=== PATIENT | male | born 1950 | race Caucasian/White ===

== ENCOUNTER → 2018-03-21 | Outpatient (CLI) | payer MEDICARE ==
--- NOTE | 2018-03-21 12:33 | P.SLEEP ---
History of Present Illness H&P Date: 03/21/18 Chief Complaint: Obstructive sleep apnea This is a 68-year-old male patient is coming in for further advice regarding his obstructive sleep apnea treatment. The patient is known to have obstructive sleep apnea. Has been diagnosed having GENE back in 2006. At that time, the patient had moderate to severe disease with AHI of 25 and the patient was given CPAP therapy at a pressure of 8 cm of water. Back then, the patient used to weigh 224 pounds and he was advised to lose weight and improve his sleep hygiene measures. Over the years, the patient had been very compliant to CPAP treatment. Initially he had some difficulty utilizing CPAP unit and ultimately he found a mask interface which is a combination of nose pillow and an oral appliance which is her tongue retaining device. This seems to be the best mask interventions that he has had and since then has been able to utilize his CPAP unit without any major difficulties. He is currently retired. 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 The certified is another whether the patient is obstructive sleep apnea. I checked his CPAP unit. The patient is an old generation Respironics units which is at least 12 years old. He is not utilizing any form of humidity. On his compliance data that I was able to pull, the patient has been averaging around 3 hours and 42 minutes of CPAP use for night and his CPAP use for more than 4 hours is almost 16 out of the past 30 days. Based on this data, the patient's treatment is suboptimal. However, he tells that he is feeling great and he is wide awake and alert during the day to the point where he doesn't fall sleep. He seems to be a short sleeper. He goes to bed around 9 PM and wakes up to 2:45 AM in the morning on work days. His sleep schedule will vary she is now working. He has no major difficulties initiating sleep with a combination of melatonin 3 mg as needed and trazodone 50 mg as needed. He has gained around 25 pounds over this past 12 years and current weight is up to 252. No snoring while on his CPAP unit. No angina. No nighttime arousals for choking or gasping for air. No nocturia. No grinding of the teeth. No sleepwalking. No anxiety. No panic. No restlessness in lower extremity. No sleepwalking or sleep talking. No difficulty with concentration or memory. Review of Systems Constitutional: Denies chills, Denies fever Eyes: denies as per HPI, denies blurred vision, denies bulging eye, denies decreased vision, denies diplopia, denies discharge, denies dry eye, denies irritation, denies itching, denies pain, denies photophobia, denies loss of peripheral vision, denies loss of vision, denies tunnel vision/blind spots Ears: deny: decreased hearing, ear discharge, earache, tinnitus Ears, nose, mouth and throat: Reports as per HPI Cardiovascular: Denies chest pain, Denies shortness of breath Respiratory: Denies cough Gastrointestinal: Reports as per HPI Genitourinary: Reports as per HPI Musculoskeletal: Reports as per HPI Musculoskeletal: absent: ankle pain, ankle stiffness, ankle swelling, as per HPI , elbow pain, elbow stiffness, elbow swelling, foot pain, foot stiffness, foot swelling, hand pain, hand stiffness, hand swelling, hip pain, hip stiffness, hip swelling, knee pain, knee stiffness, knee swelling, shoulder pain, shoulder stiffness, shoulder swelling, wrist pain, wrist stiffness, wrist swelling Integumentary: Denies pruritus, Denies rash Neurological: Denies numbness, Denies weakness Psychiatric: Denies anxiety, Denies depression Endocrine: Denies fatigue, Denies weight change Hematologic/Lymphatic: Reports as per HPI Allergic/Immunologic: Reports as per HPI Past Medical History Additional Past Medical History / Comment(s): Coronary artery disease with previous bypass surgery, obstructive sleep apnea, obesity, hypertension, hyperlipidemia Past Surgical History: Coronary Bypass/CABG, Orthopedic Surgery (Knee surgery) Past Anesthesia/Blood Transfusion Reactions: No Reported Reaction Past Psychological History: No Psychological Hx Reported Smoking Status: Never smoker Past Alcohol Use History: None Reported Past Drug Use History: None Reported Medications and Allergies Home Medications and Allergies Comment(s): Atorvastatin 20 mg by mouth daily, metoprolol 100 mg by mouth daily, losartan 100 mg by mouth daily, Norvasc 10 mg by mouth daily, melatonin 3 mg as needed, trazodone 50 mg as needed. Physical Exam The patient appeared well nourished and normally developed. Vital signs as documented. Head exam is unremarkable. No scleral icterus or corneal arcus noted. Neck is without jugular venous distension, thyromegaly, or carotid bruits. The patient has significant crowding of the posterior oropharynx. The patient is a Mallampati class IV. Carotid upstrokes are brisk bilaterally. Lungs are clear to auscultation and percussion. Cardiac exam reveals the PMI to be normally sized and situated. Rhythm is regular. First and second heart sounds normal. No murmurs, rubs or gallops. Abdominal exam reveals normal bowel sounds, no masses, no organomegaly and no aortic enlargement. Extremities are nonedematous and both femoral and pedal pulses are normal.Examination of the skin revealed no evidence of significant rashes, suspicious appearing nevi or other concerning lesions. Neurologically awake and alert and there is no focal neurological deficits. There is a scar which is a thoracotomy scar over the anterior chest Assessment and Plan Plan: 1 obstructive sleep apnea currently on CPAP pressure of 8 cm of water. The patient's baseline AHI was 25 based on a sleep study that was done back in 2006. Interval history is positive for 25 pounds weight gain. Compliance data seems to be suboptimal. Clinically alert and awake without any major hypersomnia. 2 hypersomnia recovered with CPAP therapy. This is improved despite suboptimal data on his compliancy follow-up. Possibly that the patient is a short sleeper. The patient has an [place] score of 5 3 schoolbus limousine driver 4 obesity with a BMI of 39.4 5 coronary artery disease with previous bypass surgery 6 hyperlipidemia 7 hypertension Plan We'll ask the patient to lose weight. We are asked the patient to extend his sleep hours on average of 6-7 hours if possible. I have a suspicion that the patient is a short sleeper and he may not require long number of hours of sleep. In any rate, based on the fact that the patient is a schoolbus limousine driver, I would like to see improved compliance data on a CPAP unit. I offered them a new CPAP unit and he was willing to upgrade his machine to a newer generation APAP unit which will be ordered and still be set at a minimum pressure of 5 and a maximum pressure 15 and the patient will see back in follow-up to discuss his compliancy and clinical response. It's important for this patient to average at least 4 hours of APAP use and his compliance data will be monitored very closely prior to this patient obtaining his DOT certification. Implement the sleep hygiene measures. Keep the same mask interface. We'll continue to follow. Sleep Note - Sleep Data Previous Sleep Study: Yes Previous Sleep Study Location: [facility] Device: CPAP (CPAP of 8) Using Heated Humidity: No - Sleep Note Sleep Note: Temperature: 97 9 Pulse Rate: 70 Respiratory Rate: 16 Blood Pressure: 159/69 SpO2: 97% Height: 252 pounds Weight: 5 feet 7 inches BMI: 39.4 Neck Circumference: 19 inches
== END | disposition home or self-care (01) ==
LOC: SLEEP 09:58
PROVIDERS: ATTEND Internal Medicine Critical Care Medicine
DX: G47.33 Obstructive sleep apnea (adult) (pediatric) (principal); E66.9 Obesity, unspecified; I25.10 Atherosclerotic heart disease of native coronary artery without angina pectoris; E78.5 Hyperlipidemia, unspecified; I10 Essential (primary) hypertension; Z68.39 Body mass index [BMI] 39.0-39.9, adult; Z99.89 Dependence on other enabling machines and devices; Z95.1 Presence of aortocoronary bypass graft
CPT/HCPCS: 99211

== ENCOUNTER → 2018-05-09 | Outpatient (CLI) | payer MEDICARE ==
--- NOTE | 2018-05-09 16:04 | PN ---
PROGRESS NOTE This is a 68-year-old male patient with known history of obstructive sleep apnea with an AHI of 25 who was been on CPAP therapy in the past. The patient came into my office for re-evaluation back in March of 2018. The patient was given an updated CPAP unit and the patient is coming in today for a compliancy check. He was given a ResMed AutoSet CPAP unit which was set at a minimum pressure of 5 and a maximum pressure of 15. 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 On today's evaluation, the patient is utilizing his CPAP compliantly. The patient is on an auto mode with minimum pressure of 5, maximum pressure of 15. Since his last evaluation he has lost around 5 pounds. Based on the compliance data, the patient has been using his CPAP every night. His CPAP use for more than 4 hours is above 90%. His average pressure utilized is 14.5, and his AHI while on treatment is down to 2.4, indicating that the patient is being successfully treated. He is loving his new CPAP machine. He is benefitting from the treatment. He reports improvement in his sleep quality in general. His [place] score is 1 and he does not take any naps during the day nor does he fall asleep while driving his car or doing any other daily activities. No other complaints for now. REVIEW OF SYSTEMS: Fourteen-point review of systems was done. Positive findings are mentioned above in the history of present illness. Snoring has completely subsided. No headaches. No altered mentation. No dizziness. No neck pain. No sinus infections. No sore throat. He is using his own mask that he purchased online. No reported grinding of the teeth. No choking or gasping sensation. No angina. No palpitations. No nausea, vomiting, diarrhea or abdominal pain. No dysuria, frequency or urgency. No difficulty with memory or concentration. No sleepwalking or sleeptalking. No swelling in the lower extremities. No blurred vision. No hearing difficulties for now. PHYSICAL EXAMINATION: His current vital signs are BP 124/72, pulse 56, respirations 16, temperature 97.8, saturation 97% on room air. Weight is 247. GENERAL APPEARANCE: Calm, comfortable. Head is atraumatic, normocephalic. NECK: Supple. No JVD. No goiter or neck masses. Mallampati class IV. LUNGS: Clear to auscultation. HEART: Heart sounds are regular rate and rhythm. Normal S1, S2. No S3, S4. No murmurs. ABDOMEN: Soft, nontender. No organomegaly. EXTREMITIES: No edema. No cyanosis or clubbing. NEUROLOGIC: He is awake and alert x3. There is no focal neurological deficit. PSYCHIATRIC: Negative for anxiety or depression. Skin is negative for any wounds or ulceration. There is a thoracotomy scar over the anterior chest area. IMPRESSION: 1. Obstructive sleep apnea, apnea/hypopnea index of 25, indicating moderate to severe disease based on a sleep study that was done 2006. Currently on APAP, minimum of 5, maximum of 15, and the patient is clinically benefitting from treatment and he has demonstrated adequate compliancy. 2. Hypersomnia, recovered. [place] score is down to 1. 3. cdl flatbed truck driver. 4. Obesity with a body mass index of 39.4, interval 5-pound weight loss. 5. Coronary artery disease with bypass surgery. 6. Hyperlipidemia. 7. Hypertension. PLAN: 1. Continue APAP therapy at the same pressure setting. 2. No need for any adjustments on today's evaluation. 3. Compliance data was checked, and the patient has been using his machine appropriately more than 6 hours per night and his apnea score is less than 5, indicating successful treatment. 4. The patient is seeking a DOT certification from [employer]. I do not see any issues with that, and I think the patient has been utilizing his CPAP regularly and has been treated successfully. He has no increased risk compared to the general population of falling asleep during driving or being involved in a motor vehicle accident due to sleep apnea. His disease is treated and he should be able to get his DOT certification without any reservations from our end. MMODL / IJN: [id number] /
== END | disposition home or self-care (01) ==
LOC: SLEEP 14:01
PROVIDERS: ATTEND Internal Medicine Critical Care Medicine
DX: G47.33 Obstructive sleep apnea (adult) (pediatric) (principal); E66.9 Obesity, unspecified; I25.10 Atherosclerotic heart disease of native coronary artery without angina pectoris; E78.5 Hyperlipidemia, unspecified; I10 Essential (primary) hypertension; Z68.39 Body mass index [BMI] 39.0-39.9, adult; Z95.1 Presence of aortocoronary bypass graft; Z99.89 Dependence on other enabling machines and devices

== ENCOUNTER → 2021-07-02 | Outpatient (CLI) | payer MEDICARE ==
--- NOTE | 2021-07-02 14:44 | CONS ---
CONSULTATION DATE OF SERVICE: 07/02/2021 71-year-old gentleman has been evaluated in Sleep Center for obstructive sleep apnea- hypopnea syndrome. Last time patient was in our Sleep Center in 2019, he was seen by Dr. Philip at that time. He was diagnosed with moderate obstructive sleep apnea-hypopnea syndrome, apnea- hypopnea index 25 on the basis of results of previous sleep study which possibly was done in another institution, and at that time apnea-hypopnea index was 25. SLEEP SCHEDULE: His sleep schedule about 5 hours and he gets up in the morning about 5:00 am. 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 DURING SLEEP: While using his machine, he maybe wakes up from sleep once. No nocturia. Positive history of snoring. [place] Sleepiness Scale today is 3 which is totally normal. The patient does not take any naps. FALLING ASLEEP: No problems with falling asleep at night although he has TV set in bedroom usually sleeps on the side position. No history of hypnagogic hallucinations sleep paralysis or cataplexy. He indicated that he probably still snores with CPAP. I checked CPAP unit. It is in automatic regimen. Range of the pressure 5-15 cm of water. Average 11.8 cm of water. Usage is 26/30 nights and 22/30 nights for more than 4 hours. Average usage 5.7 hours per night. Leak is 16 L/minute, which is acceptable. Apnea-hypopnea index is 3.8 which is in normal range. PAST MEDICAL HISTORY: Positive for coronary artery disease, hypertension, hyperlipidemia, neck problems. PAST SURGICAL HISTORY: Neck surgery, right knee surgery, coronary artery bypass graft in 2007. MEDICATIONS: Atorvastatin 20 mg once a day, metoprolol 100 mg once a day, losartan hydrochlorothiazide 100/25 mg once a day, amlodipine 10 mg once a day, aspirin 81 mg once a day, 150 mg twice a day. REVIEW OF SYSTEMS: Occasional awakenings from sleep. FAMILY HISTORY: Heart problems, hypertension. PHYSICAL EXAMINATION: GENERAL: gentleman without distress. BP 141/71, HR 54, RR 16, height 5 feet 7 and one half inches, weight 255, body mass index 39.3, temperature 98.1, oxygen saturation at room air 97%. OROPHARYNX: Extremely low position of soft palate, Mallampati 4. NECK is wide. Neck: Supple, no JVD. Thyroid is not palpable. LUNGS: Clear to percussion and to auscultation. Good air exchange. No wheezing or rhonchi. HEART: S1, S2 regular. No murmurs, gallops, or rubs. ABDOMEN: Obese. Soft and nontender. Bowel sounds are present. No organomegaly appreciated. EXTREMITIES: No clubbing or cyanosis. JUICE WEIGHER: Awake, alert, and oriented X3. Cranial nerves 2 to 7 intact. There is no fasciculation or atrophy. noted. No focal deficits observed. IMPRESSION: 1. Obstructive sleep apnea-hypopnea syndrome for many years. The patient continued to use his CPAP equipment with good compliance, normal respiration on CPAP. CPAP unit does not have correct air filter. 2. Obesity, body mass index 39.3. 3. Coronary artery disease, status post coronary artery bypass grafting. 4. Hypertension. 5. Hyperlipidemia. 6. Status post neck surgery. 7. Status post right knee surgery. PLAN: 1. Patient should immediately get correct air filter for his CPAP unit. The prescription was written. 2. Continue to use CPAP equipment every night for the whole night. 3. Losing weight. 4. Sleep hygiene with regular time in bed for at least 7-1/2 to 8 hours. 5. No driving if feeling any sleepiness. 6. Follow-up visit in 6 months or earlier if patient has any problems. Thank you very much for allowing me to participate in management of your patient. Sincerely, Prosper Cintron MD, PhD, FAASM Diplomat of [employer] [employer] Sleep Medicine Board of [place] [employer] Civil Clerk of [facility] [place] MMODL / IJN: [id number] /
== END ==
LOC: SLEEP 11:20
PROVIDERS: ATTEND Internal Medicine
DX: G47.33 Obstructive sleep apnea (adult) (pediatric) (principal); I25.10 Atherosclerotic heart disease of native coronary artery without angina pectoris; E66.9 Obesity, unspecified; I10 Essential (primary) hypertension; E78.5 Hyperlipidemia, unspecified; Z68.39 Body mass index [BMI] 39.0-39.9, adult; Z95.1 Presence of aortocoronary bypass graft; Z98.890 Other specified postprocedural states; Z79.899 Other long term (current) drug therapy; Z79.82 Long term (current) use of aspirin; Z99.89 Dependence on other enabling machines and devices
CPT/HCPCS: 99211

== ENCOUNTER → 2024-08-24 | Outpatient (CLI) | payer MEDICARE ==
--- NOTE | 2024-08-24 15:18 | FL ---
EXAMINATION TYPE: FL arthrogram shoulder RT DATE OF EXAM: 08/24/2024 COMPARISON: NONE HISTORY: Right shoulder pain PROCEDURE: Fluoroscopic-guided right shoulder arthrogram. ANESTHESIA: 1. 1% Lidocaine locally. FINDINGS/TECHNIQUE: The procedure was explained to the patient. The risks, complications, benefits and alternatives were discussed and any questions were answered. Informed consent was obtained. The patient was placed supine on the fluoroscopic table and prepped and draped in the usual sterile fash ion. Utilizing a 21 gauge needle and fluoroscopic guidance, access in the [right shoulder joint ] w as achieved and there is instillation approximately 5 to 6 cc of diluted Isovue 370. Image was obtain ed demonstrating contrast within the joint space. Patient is to have a CT scan post procedure. A krishan hnologist was to exercise the joint. The patient was stable throughout the procedure and remained stable upon discharge from the [facility]. All elements of the maximal barrier technique were utilized. FLUOROSCOPY TIME: 45 seconds. The DAP not provided. IMPRESSION: Successful right shoulder arthrogram prior to CT scan. [facility], , 08/24/2024 3:16 PM
--- NOTE | 2024-08-25 20:16 | CT ---
CT shoulder RT w con arthrogram DATE OF EXAM: 08/24/2024 3:18 PM COMPARISON: Fluoroscopically guided right shoulder arthrogram performed same day. CLINICAL INDICATION: Male, 74 years old with history of M25.511 PAIN IN RT SHOULDER; [facility], TECHNIQUE: Helical images were obtained through the right shoulder. Sagittal and coronal reformatted images were generated. Intra-articular contrast was administered according to protocol, please refer to separate fluoroscopic arthrogram report for details. FINDINGS: Acromioclavicular joint: Moderate arthrosis. Glenohumeral joint/morphology: Moderate arthrosis; minimal anterior wear of the glenoid with slight a nterior subluxation of the humeral head and subsequent anterior joint space narrowing (Walch D). No a dvanced subchondral cystic change. Small posterior marginal osteophytes. Additional marked superior s ubluxation of the humeral head with humeral-acromial impaction. Marked osseous remodeling and subcort ical cystic change of the lesser tuberosity of the humerus. Other osseous structures: Intact. Rotator cuff: Presumed full-thickness fullwidth tear of supraspinatus. Additional suspected full-thic kness tear of infraspinatus. Severe supraspinatus and infraspinatus fatty infiltration and atrophy. H igh-grade partial/near full-thickness tear of the superior subscapularis. Preservation of subscapular is muscle bulk. Teres minor preserved. Soft tissues: Remaining muscle bulk preserved. No suspicious axillary adenopathy. No suspicious pulmo nary nodularity or mass. IMPRESSION: 1. Massive rotator cuff tear with severe fatty infiltration and atrophy of supraspinatus and infrasp inatus. 2. Moderate glenohumeral and acromioclavicular osteoarthroses. [facility], , 08/25/2024 8:13 PM
== END | disposition home or self-care (01) ==
LOC: RADFLMAIN 14:16
PROVIDERS: ATTEND Orthopaedic Surgery
DX: M75.121 Complete rotator cuff tear or rupture of right shoulder, not specified as traumatic (principal); M19.011 Primary osteoarthritis, right shoulder
CPT/HCPCS: 23350; 73040; 73201; Q9967